=== PATIENT | male | born 1990 | race Caucasian/White ===

== ENCOUNTER 2016-07-11 20:59 | Emergency (ER) | payer OTHER | END 2016-07-11 23:01 | disposition home or self-care (01) | LOC: FER 20:59 | DX: L23.7 Allergic contact dermatitis due to plants, except food (principal); F41.9 Anxiety disorder, unspecified; F32.9 Major depressive disorder, single episode, unspecified; Z79.899 Other long term (current) drug therapy | CPT/HCPCS: J3301 ==